=== PATIENT | male | born 1970 | race Caucasian/White ===

== ENCOUNTER 2017-12-03 10:04 | Emergency (ER) | payer MEDICAID, OTHER | END 2017-12-03 18:48 | disposition home or self-care (01) | LOC: E/R 10:04 | DX: S62.617A Displaced fracture of proximal phalanx of left little finger, initial encounter for closed fracture (principal); X58.XXXA Exposure to other specified factors, initial encounter; Y92.310 Basketball court as the place of occurrence of the external cause | CPT/HCPCS: 29130; 73140; 99283-25 ==